=== PATIENT | male | born 1970 | race African-American/Black ===

== ENCOUNTER 2019-01-16 17:17 | Emergency (ER) | payer MEDICAID ==
[~2019-01-16] VITALS: Ht 177.8 cm; Wt 84.0 kg
[2019-01-16 17:22] VITALS: BP 129/78
== END 2019-01-16 18:47 | disposition home or self-care (01) ==
LOC: ER 17:17
DX: S39.012A Strain of muscle, fascia and tendon of lower back, initial encounter (principal); S29.012A Strain of muscle and tendon of back wall of thorax, initial encounter; Z88.1 Allergy status to other antibiotic agents; V49.49XA Driver injured in collision with other motor vehicles in traffic accident, initial encounter; Y93.89 Activity, other specified; Y92.89 Other specified places as the place of occurrence of the external cause; Y99.8 Other external cause status
CPT/HCPCS: 99281

== ENCOUNTER 2020-09-30 20:44 | Emergency (ER) | payer MEDICAID ==
[~2020-09-30] VITALS: Ht 170.2 cm; Wt 96.6 kg
[2020-09-30] MEDS ORDERED: KETOROLAC 60MG/2ML VIAL IM ONE (21:45)
[2020-09-30 22:00] VITALS: BP 141/91
[2020-09-30] MEDS ORDERED: IBUP-2028 MT (22:59)
== END 2020-09-30 23:26 | disposition home or self-care (01) ==
LOC: ER 20:44
DX: G43.809 Other migraine, not intractable, without status migrainosus (principal); Z59.0 Homelessness; Z88.0 Allergy status to penicillin
CPT/HCPCS: 96372; 99283; J1885

== ENCOUNTER 2020-11-06 12:00 | Emergency (ER) | payer MEDICAID ==
[~2020-11-06] VITALS: Ht 172.7 cm; Wt 82.0 kg
[~2020-11-06 12:00] MED LIST: IBUP-2028 MT
[2020-11-06 12:16] VITALS: BP 156/91
[2020-11-06 13:14] LABS: BASOPHILS % 1.3 % (0.0-2.0); EOSINOPHILS % 1.1 % (0.0-5.0); HEMATOCRIT. 48.2 % (42.0-52.0); HEMOGLOBIN. 16.9 g/dL (14.0-18.0); LYMPHOCYTES % 24.1 % (20.0-50.0); MEAN CORPUSCULAR HEMOGLOBIN 31.6 pg (28.0-32.0); MEAN CORPUSCULAR VOLUME 89.8 fL (80.0-94.0); MEAN PLATELET VOLUME 8.6 fl (7.4-10.4); MONOCYTES % 7.2 % (2.0-8.0); NEUTROPHILS % 66.3 % (40.0-76.0); PLATELET 177 x1000/uL (130-400); RED BLOOD CELL COUNT 5.37 mill/uL (4.7-6.1); RED CELL DISTRIBUTION WIDTH 15.2 % (11.6-14.6)
[2020-11-06 13:24] LABS: CHLORIDE 107 mEq/L (98-107)
== END 2020-11-06 15:35 | disposition left against medical advice (07) ==
LOC: ER 12:00
DX: R10.12 Left upper quadrant pain (principal); Z88.0 Allergy status to penicillin; Z98.890 Other specified postprocedural states
CPT/HCPCS: 36415; 80053; 85025; 99283

== ENCOUNTER 2020-11-09 16:59 | Emergency (ER) | payer MEDICAID ==
[~2020-11-09] VITALS: Ht 172.7 cm; Wt 91.0 kg
[2020-11-09 17:23] VITALS: BP 145/86
[2020-11-09] MEDS ORDERED: ACETAMINOPHEN 325MG TABLET PO STA (18:19)
[2020-11-09] MEDS ORDERED: ONDANSETRON 4MG ODT PO STA (18:19)
[2020-11-09 19:52] LABS: BASOPHILS % 0.8 % (0.0-2.0); EOSINOPHILS % 1.1 % (0.0-5.0); HEMATOCRIT. 44.6 % (42.0-52.0); HEMOGLOBIN. 15.7 g/dL (14.0-18.0); MEAN CORPUSCULAR HEMOGLOBIN 31.4 pg (28.0-32.0); MEAN PLATELET VOLUME 8.6 fl (7.4-10.4); MONOCYTES % 8.9 % (2.0-8.0); NEUTROPHILS % 58.2 % (40.0-76.0); PLATELET 191 x1000/uL (130-400); RED BLOOD CELL COUNT 5.01 mill/uL (4.7-6.1); RED CELL DISTRIBUTION WIDTH 14.8 % (11.6-14.6)
[2020-11-09 20:01] LABS: CHLORIDE 106 mEq/L (98-107)
[2020-11-09 20:05] LABS: ETHANOL BLOOD < 10 mg/dL
[2020-11-09 20:07] LABS: PROTHROMBIN TIME 10.8 sec (9.6-11.0)
[2020-11-09 20:55] LABS: CLARITY URINE CLEAR (CLEAR); COLOR URINE DARK YELLOW (YELLOW); KETONES URINE TRACE (NEGATIVE); LEUKOCYTE ESTERASE URINE TRACE (NEGATIVE); NITRITE URINE NEGATIVE (NEGATIVE); OCCULT BLOOD URINE NEGATIVE (NEGATIVE); PH URINE 5.5 (4.5-8.0); PROTEIN URINE NEGATIVE (NEGATIVE); SPECIFIC GRAVITY URINE 1.033 (1.005-1.030)
[2020-11-09 21:05] LABS: *AMPHETAMINES SCREEN URINE NEGATIVE (NEGATIVE); *BARBITURATES SCREEN URINE NEGATIVE (NEGATIVE); *BENZODIAZEPINES SCREEN URINE NEGATIVE (NEGATIVE)
[2020-11-09 21:06] LABS: *COCAINE SCREEN URINE PRESUMTIVE POSITIVE (NEGATIVE); METHADONE URINE SCREEN NEGATIVE (NEGATIVE); OPIATES URINE SCREEN NEGATIVE (NEGATIVE)
[2020-11-09 21:07] LABS: CANNABINOID URINE SCREEN PRESUMTIVE POSITIVE (NEGATIVE); PHENCYCLIDINE URINE SCREEN NEGATIVE (NEGATIVE)
[2020-11-09] MEDS ORDERED: IOHEXOL-300 100 ML BOTTLE ONE (22:08)
== END 2020-11-09 22:30 | disposition home or self-care (01) ==
LOC: ER 16:59
DX: K76.0 Fatty (change of) liver, not elsewhere classified (principal); Z88.1 Allergy status to other antibiotic agents; Z98.890 Other specified postprocedural states
CPT/HCPCS: 36415; 71045; 74177; 76700; 80053; 80305; 80320; 81003; 83605; 83690; 84484; 85025; 85610; 93005; 99285; Q0162; Q9967; Z7610; G0480